=== PATIENT | female | born 1995 | race American Indian/Alaskan Native ===

== ENCOUNTER 2020-04-22 01:49 | Inpatient (IN) | payer OTHER ==
[2020-04-22] MEDS ORDERED: TERBUTALINE 1 MG/1 ML INJ SUB-Q PRN (03:34)
[2020-04-22] MEDS ORDERED: ONDANSETRON 4 MG/2 ML INJ IV PRN (03:34)
[2020-04-22] MEDS ORDERED: ePHEDrine SULFATE 50 MG/1 ML INJ IV PRN (03:34)
[2020-04-22] MEDS ORDERED: BUTORPHANOL 2 MG/1 ML INJ IV PRN (03:34)
[2020-04-22] MEDS ORDERED: miSOPROStol 25 MCG TAB VG ONE (03:34)
[2020-04-22] MEDS ORDERED: MINERAL OIL 30 ML ORAL LIQD PO PRN (03:34)
[2020-04-22] MEDS ORDERED: OXYTOCIN 20 UNIT/1000ML DRIP 20 UNITS/1,000 ML BAG IV SCH (04:00)
[2020-04-22 06:10] LABS: Hematocrit 31.2 % (30.3-42.9); Hemoglobin 10.4 gm/dl (10.1-14.3); Mean Corpuscular HGB Conc 33 % (30-34); Mean Corpuscular Volume 77 fl (79-97); Platelet Count 195 K/mm3 (140-440); Red Blood Count 4.04 M/mm3 (3.65-5.03); Red Cell Distribution Width 14.5 % (13.2-15.2)
[2020-04-22] MEDS ORDERED: OXYTOCIN DRIP 30 UNITS/500 ML BAG IV SCH (09:00)
[2020-04-22] MEDS: LACTATED RINGERS 1,000 ML IV SCH ×2 (11:38→19:38)
[2020-04-22] MEDS ORDERED: DINOPROSTONE 10 MG VAG SUPP VG ONE (18:06)
[2020-04-23] MEDS: fentaNYL 100 MCG/2 ML INJ IV PRN ×2 (02:23→08:17)
[2020-04-23] MEDS: LACTATED RINGERS 1,000 ML IV SCH ×2 (03:41→11:25)
[2020-04-23] MEDS ORDERED: miSOPROStol 200 MCG TAB PO ONE (09:00)
[2020-04-23] MEDS ORDERED: miSOPROStol 25 MCG TAB VG ONE (11:01)
[2020-04-23] MEDS: BENZOCAINE/MENTHOL 20/0.5% TOP SPRAY 56 GM TP PRN ×2 (11:25→15:57)
[2020-04-23] MEDS: MORPHINE 2 MG/1 ML INJ IV PRN ×3 (11:26→21:45)
[2020-04-23] MEDS ORDERED: miSOPROStol 100 MCG TAB VG ONE ×2 (15:38→20:53)
[2020-04-24] MEDS: MORPHINE 2 MG/1 ML INJ IV PRN (02:36)
[2020-04-24] MEDS ORDERED: OXYTOCIN DRIP 30 UNITS/500 ML BAG IV SCH (06:00)
[2020-04-24] MEDS ORDERED: ACETAMINOPHEN 325 MG TAB ONE (07:06)
[2020-04-24] MEDS: fentaNYL 100 MCG/2 ML INJ IV PRN (07:38)
[2020-04-24] MEDS: LACTATED RINGERS 1,000 ML IV SCH (09:31)
[2020-04-24] MEDS ORDERED: DEXMEDETOMIDINE 200 MCG/2 ML VIAL IV ONE (10:33)
[2020-04-24] MEDS ORDERED: fentaNYL-BUPIV 2 MCG/ML-0.125% 200 MCG/100 ML BAG EPIDURAL ONE (11:08)
[2020-04-24] MEDS ORDERED: ePHEDrine SULFATE 50 MG/1 ML INJ IV PRN (11:30)
[2020-04-24] MEDS ORDERED: NALOXONE 2 MG/2 ML INJ IV PRN (11:30)
[2020-04-24] MEDS ORDERED: fentaNYL-BUPIV 2 MCG/ML-0.125% 200 MCG/100 ML BAG EPIDURAL SCH (12:00)
[2020-04-24 12:35] LABS: Amphetamine Screen,Urine PRESUMPTIVE NEGATIVE; Benzodiazepines Screen,Urine PRESUMPTIVE NEGATIVE; Cannabinoid Screen,Urine PRESUMPTIVE NEGATIVE; Cocaine Screen,Urine PRESUMPTIVE NEGATIVE; Methadone Screen,Urine PRESUMPTIVE NEGATIVE; Opiate Screen,Urine PRESUMPTIVE NEGATIVE
[2020-04-24] MEDS ORDERED: LIDOCAINE (2%) 20 MG/1 ML VIAL 20 ML MDV INFILTRATI ONE (14:12)
[2020-04-24] MEDS ORDERED: miSOPROStol 200 MCG TAB ONE (14:13)
[2020-04-24] MEDS ORDERED: WITCH HAZEL/ GLYCERIN PAD TP PRN (15:43)
[2020-04-24] MEDS ORDERED: ONDANSETRON 4 MG/2 ML INJ IV PRN (15:43)
[2020-04-24] MEDS ORDERED: MAGNESIUM HYDROXIDE (MOM) ORAL LIQD UDC PO PRN (15:43)
[2020-04-24] MEDS ORDERED: ACETAMINOPHEN 325 MG TAB PO PRN (15:43)
[2020-04-24] MEDS ORDERED: PROMETHAZINE 25 MG TAB PO PRN (15:43)
[2020-04-24] MEDS ORDERED: LANOLIN/ZINC/DIMETHICONE (LANSINOH) 7 GM TP PRN (15:43)
[2020-04-24] MEDS ORDERED: diphenhydrAMINE 25 MG CAP PO PRN (15:43)
[2020-04-24] MEDS ORDERED: IBUPROFEN 600 MG TAB PO SCH (16:00)
[2020-04-24] MEDS ORDERED: OXYTOCIN 20 UNIT/1000ML DRIP 20 UNITS/1,000 ML BAG IV SCH (16:00)
[2020-04-24] MEDS: IBUPROFEN 800 MG TAB PO SCH (17:17)
[2020-04-24] MEDS: DOCUSATE SODIUM 100 MG CAP PO SCH (22:37)
[2020-04-25 05:18] LABS: Hematocrit 29.3 % (30.3-42.9); Hemoglobin 9.8 gm/dl (10.1-14.3)
[2020-04-25] MEDS ORDERED: DIPHtheria,PERTUSSIS(ACELL),TETANUS VACCINE/PF 0.5 ML VIAL IM ONE (06:00)
[2020-04-25] MEDS: IBUPROFEN 800 MG TAB PO SCH ×2 (06:25→06:26)
[2020-04-25 09:20] VITALS: BP 120/76
[2020-04-25] MEDS: DOCUSATE SODIUM 100 MG CAP PO SCH (09:32)
== END 2020-04-25 10:30 | disposition home or self-care (01) | DRG 775 ==
LOC: TRG 01:49 → APU 01:54 → LD 03:34 → TRG 03:34 → LD 03:45 → OB 04-24 18:03
PROVIDERS: ADMIT Obstetrics & Gynecology; ATTEND Obstetrics & Gynecology
PROC: 10E0XZZ Delivery of Products of Conception, External Approach (ICD-10-PCS; principal; 2020-04-24)
PROC: 3E0R3BZ Introduction of Anesthetic Agent into Spinal Canal, Percutaneous Approach (ICD-10-PCS; 2020-04-24)
PROC: 00HU33Z Insertion of Infusion Device into Spinal Canal, Percutaneous Approach (ICD-10-PCS; 2020-04-24)
PROC: 3E0234Z Introduction of Serum, Toxoid and Vaccine into Muscle, Percutaneous Approach (ICD-10-PCS; 2020-04-25)
DX: O36.4XX0 Maternal care for intrauterine death, not applicable or unspecified (principal); O69.81X0 Labor and delivery complicated by cord around neck, without compression, not applicable or unspecified; Z3A.30 30 weeks gestation of pregnancy; Z37.1 Single stillbirth; Z23 Encounter for immunization
CPT/HCPCS: 36415; 59200; 76815; 80307; 85014; 85018; 85027; 86592; 86850; 86900; 86901; 88307; G0378; J0595; J2270; J2590; J3010; J3490; J7120

== ENCOUNTER 2021-05-23 13:06 | Emergency (ER) | payer OTHER ==
[2021-05-23 14:57] VITALS: BP 127/73
== END 2021-05-23 19:41 | disposition left against medical advice (07) ==
LOC: ED 13:06
DX: L29.9 Pruritus, unspecified (principal); Z53.21 Procedure and treatment not carried out due to patient leaving prior to being seen by health care provider

== ENCOUNTER 2021-12-15 00:40 | Emergency (ER) | payer OTHER ==
[2021-12-15 03:58] VITALS: BP 134/73
--- NOTE | 2021-12-15 06:51 | Emergency Department Report ---
ED ENT HPI - General Chief complaint: Dental/Oral Stated complaint: WISDOM TOOTH PAIN Time Seen by Provider: 12/15/21 06:12 Source: patient Mode of arrival: Ambulatory Limitations: No Limitations - History of Present Illness Initial comments: 26-year-old -Citizen Of [place] female presents to the emergency room for 1 week history of left lower third molar pain. She states that her her wisdom tooth is giving her problems. She states that she had tried ibuprofen and it brought it down from a 10 to a 7. She states has been using Orajel which was helping but now is no longer helping. She is requesting for referral to a dentist. She denies any fever chills. She denies any trauma. She does state that she is aware that the tooth is coming in at a angle. MD complaint: tooth pain Onset/Timin -: week(s) Location: tooth # (17) Severity: moderate Severity scale (0 -10): 7 Quality: aching Consistency: constant Improves with: NSAID Context- Dental: history of dental caries Associated Symptoms: toothache. denies: gum swelling, pain with swallowing, sore throat - Related Data Home Medications Medication Instructions Recorded Confirmed Last Taken Vitamin 1 tab PO DAILY 04/23/20 04/23/20 04/21/20 Previous Rx's Medication Instructions Recorded Last Taken Type Ibuprofen [Motrin 800 MG tab] 800 mg PO Q8HR PRN #30 tablet 12/15/21 Unknown Rx Allergies Allergy/AdvReac Type Severity Reaction Status Date / Time No Known Allergies Allergy Verified 12/15/21 03:57 ED Dental HPI - General Chief complaint: Dental/Oral Stated complaint: WISDOM TOOTH PAIN Time Seen by Provider: 12/15/21 06:12 Source: patient Mode of arrival: Ambulatory Limitations: No Limitations - Related Data Home Medications Medication Instructions Recorded Confirmed Last Taken Vitamin 1 tab PO DAILY 04/23/20 04/23/20 04/21/20 Previous Rx's Medication Instructions Recorded Last Taken Type Ibuprofen [Motrin 800 MG tab] 800 mg PO Q8HR PRN #30 tablet 12/15/21 Unknown Rx Allergies Allergy/AdvReac Type Severity Reaction Status Date / Time No Known Allergies Allergy Verified 12/15/21 03:57 ED Review of Systems ROS: Stated complaint: WISDOM TOOTH PAIN Other details as noted in HPI Comment: All other systems reviewed and negative ED Past Medical Hx - Past Medical History Hx Hypertension: No Hx Heart Attack/AMI: No Hx Congestive Heart Failure: No Hx Diabetes: No Hx Liver Disease: No Hx Renal Disease: No Hx Sickle Cell Disease: Yes (TRAIT) Hx Seizures: No Hx Asthma: Yes (last used 04/21) Hx COPD: No - Surgical History Hx Pacemaker: No Hx Internal Defibrillator: No - Social History Smoking Status: Never Smoker - Medications Home Medications: Home Medications Medication Instructions Recorded Confirmed Last Taken Type Vitamin 1 tab PO DAILY 04/23/20 04/23/20 04/21/20 History Ibuprofen [Motrin 800 MG tab] 800 mg PO Q8HR PRN #30 tablet 12/15/21 Unknown Rx ED Physical Exam - General Limitations: No Limitations General appearance: alert, in no apparent distress - Head Head exam: Present: atraumatic, normocephalic - Eye Eye exam: Present: normal appearance - Expanded ENT Exam Expanded Teeth exam: Present: dental caries, dental tenderness # (17). Absent: gingival enlargement - Neck Neck exam: Present: normal inspection - Respiratory Respiratory exam: Absent: respiratory distress, accessory muscle use - Cardiovascular Cardiovascular Exam: Present: regular rate - Extremities Exam Extremities exam: Present: full ROM - Back Exam Back exam: Present: normal inspection, full ROM - Neurological Exam Neurological exam: Present: alert, oriented X3 - Psychiatric Psychiatric exam: Present: normal affect, normal mood - Skin Skin exam: Present: warm, dry, intact, normal color. Absent: rash ED Course Vital Signs 12/15/21 03:52 Temperature 98.0 F Pulse Rate 57 L Respiratory 17 Rate Blood Pressure 134/73 O2 Sat by Pulse 99 Oximetry ED Medical Decision Making - Medical Decision Making 26-year-old -Citizen Of [place] female presents to the emergency room for 1 week history of left lower third molar pain. She states that her her wisdom tooth is giving her problems. She states that she had tried ibuprofen and it brought it down from a 10 to a 7. She states has been using Orajel which was helping but now is no longer helping. She is requesting for referral to a dentist. She denies any fever chills. She denies any trauma. She does state that she is aware that the tooth is coming in at a angle. Patient has been evaluated by this provider in the emergency room. Patient has a left lower third molar impaction. Discussed with patient we will place her on pain medication and referral to dentist. Patient verbalized understanding. Patient be placed on ibuprofen 800 mg 3 times a day with precautions to increase her fluid intake advance her diet as tolerated. Critical care attestation.: If time is entered above; I have spent that time in minutes in the direct care of this critically ill patient, excluding procedure time. ED Disposition Clinical Impression: Dental impaction Disposition: HOME / SELF CARE / HOMELESS Is pt being admited?: No Does the pt Need Aspirin: No Condition: Stable Instructions: Impacted Molar Additional Instructions: Please take pain medication as needed. You can apply warm heat to your jaw. Follow-up with a dentist. Prescriptions: Ibuprofen [Motrin 800 MG tab] 800 mg PO Q8HR PRN #30 tablet PRN Reason: Pain , Severe (7-10) Referrals: [facility] [Outside] - 3-5 Days [facility] [Outside] - 3-5 Days [facility] [Outside] - 3-5 Days Forms: Work/School Release Form(ED) Time of Disposition: 06:52
== END 2021-12-15 08:12 | disposition home or self-care (01) ==
LOC: ED 00:40
DX: K01.1 Impacted teeth (principal)
CPT/HCPCS: 99282